=== PATIENT | male | born 1980 | race Caucasian/White ===

== ENCOUNTER 2017-08-14 12:55 | Observation (INO) | payer OTHER ==
[~2017-08-14] VITALS: Ht 177.8 cm; Wt 75.0 kg
[2017-08-14 13:45] VITALS: BP 141/78; PULSE 87; RESP 18; TEMP 97.6; O2SAT 97
--- NOTE | 2017-08-14 15:05 | RADRPT ---
EXAM DATE/TIME: 08/14/2017 14:12 [place] COMPARISON: No previous studies available for comparison. INDICATIONS : Chest tightness, short of breath. MEDICAL HISTORY : None. SURGICAL HISTORY : None. ENCOUNTER: Initial ACUITY: 1 day PAIN SCORE: 0/10 LOCATION: Bilateral chest FINDINGS: A single view of the chest demonstrates the lungs to be symmetrically aerated without evidence of mas s, infiltrate or effusion. The cardiomediastinal contours are unremarkable. Osseous structures are intact. CONCLUSION: 1. No acute cardiopulmonary disease. Brayden Ball MD on August 14, 2017 at 15:03 Board Certified Radiologist. This report was verified electronically.
[2017-08-14] MEDS ORDERED: ASPIRIN 325 MG TAB PO ONE (15:30)
--- NOTE | 2017-08-14 15:48 | PD ---
HPI Chief Complaint: Chest Pain Time Seen by Provider: 15:06 Travel History International Travel<30 days: No Contact w/Intl Traveler<30days: No Traveled to known affect area: No History of Present Illness HPI 36-year-old male that presents to the ED for evaluation of chest pain. Per patient he had this chest pain since Saturday. Per patient he was driving his car when he noticed having severe chest pain that was pressure-like. Per patient the pain now is improved on its own. Per patient the pain feels like a pressure. States having some shortness of breath with it. No history of this in the past. He denies any fevers chills or sweats. No recent travel. No blood thinner use. Patient was brought here by ambulance and was given Zofran but no nitroglycerin or aspirin. States that he was nauseous at the beginning but now he feels better. Per patient she still has the pressure and the discomfort is 2 out of 10. Has no allergies to medication. Denies any family history of heart disease on himself or anybody else. States having a history of cholesterol and does diet for it. He follows with the [facility] for his care. He denies any injury or trauma. No stressful situations that could've caused this. Initially the pain was severe 7 out of 10. Again the pain has improved on its own. Pain lasted less than an hour. [facility] Past Medical History Medical History: Denies Significant Hx ?: Not Past Surgical History Surgical History: No Previous Surgery Social History Alcohol Use: No Tobacco Use: No Substance Use: No Allergies-Medications (Allergen,Severity, Reaction): Coded Allergies: No Known Allergies (Verified Allergy, Unknown, 08/14/17) Review of Systems Except as stated in HPI: all other systems reviewed are Neg Physical Exam Narrative GENERAL: SKIN: Warm and dry. HEAD: Atraumatic. Normocephalic. EYES: Pupils equal and round. No scleral icterus. No injection or drainage. ENT: No nasal bleeding or discharge. Mucous membranes pink and moist. Tongue is midline. No uvula deviation. NECK: Trachea midline. No JVD. CARDIOVASCULAR: Regular rate and rhythm. No murmurs, S3, S4. Chest pain is not reproducible with touch. RESPIRATORY: No accessory muscle use. Clear to auscultation. Breath sounds equal bilaterally. GASTROINTESTINAL: Abdomen soft, non-tender, nondistended. Hepatic and splenic margins not palpable. MUSCULOSKELETAL: Extremities without clubbing, cyanosis, or edema. No obvious deformities. Full range of motion of the upper and lower extremities bilaterally. 2+ pulses bilaterally. NEUROLOGICAL: Awake and alert. No obvious cranial nerve deficits. Motor grossly within normal limits. Five out of 5 muscle strength in the arms and legs. Normal speech. PSYCHIATRIC: Appropriate mood and affect; insight and judgment normal. Data Data Last Documented VS Vital Signs Date Time Temp Pulse Resp B/P (MAP) Pulse Ox O2 Delivery O2 Flow Rate FiO2 08/14/17 14:35 97 Room Air 08/14/17 13:45 97.6 87 18 141/78 (99) Orders Orders Electrocardiogram (08/14/17 14:00) Complete Blood Count With Diff (08/14/17 14:00) Basic Metabolic Panel (Bmp) (08/14/17 14:00) Ckmb (Isoenzyme) Profile (08/14/17 14:00) Troponin I (08/14/17 14:00) Chest, Single Ap (08/14/17 14:00) Iv Access Insert/Monitor (08/14/17 14:00) Ecg Monitoring (08/14/17 14:00) Oxygen Administration (08/14/17 14:00) Oximetry (08/14/17 14:00) D-Dimer (08/14/17 14:04) Aspirin (Aspirin) (08/14/17 15:30) Labs Laboratory Tests Test 08/14/17 14:25 [facility] Medical Decision Making Medical Screen Exam Complete: Yes Emergency Medical Condition: Yes Medical Record Reviewed: Yes Differential Diagnosis Chest pain versus ACS versus PE versus pneumonia versus anxiety versus pancreatitis versus normal exam Narrative Course 36-year-old male that presents to the ED for evaluation of chest pain. Patient was properly examined and was found to have signs and symptoms consistent with chest pain. Unclear etiology at this time. Labs and imaging ordered. Initial EKG read by me and attending did not show any sign of ST elevation or acute ischemia. Patient was given aspirin. Case will be signed out to incoming provider pending disposition and treatment plan. Santo Cornell Aug 14, 2017 15:48
[2017-08-14 16:14] LABS: AUTOMATED NEUTROPHIL # 11.7 TH/MM3 (1.8-7.7); BASOPHIL # 0.1 TH/MM3 (0-0.2); BASOPHIL % 0.4 % (0.0-2.0); EOSINOPHIL # 0.1 TH/MM3 (0-0.4); HEMATOCRIT 41.2 % (39.0-51.0); HEMOGLOBIN 14.5 GM/DL (13.0-17.0); LYMPH % 7.9 % (9.0-44.0); LYMPHOCYTE # 1.1 TH/MM3 (1.0-4.8); MEAN CELL VOLUME 87.7 FL (80.0-100.0); MEAN CORPUSCULAR HEMOGLOBIN 30.9 PG (27.0-34.0); MEAN CORPUSCULAR HGB CONC 35.2 % (32.0-36.0); MEAN PLATELET VOLUME 10.3 FL (7.0-11.0); MONO % 5.6 % (0.0-8.0); MONOCYTE # 0.8 TH/MM3 (0-0.9); NEUT % 85.1 % (16.0-70.0); PLATELET COUNT 265 TH/MM3 (150-450); RED CELL DISTRIBUTION WIDTH 12.5 % (11.6-17.2); WHITE BLOOD COUNT 13.8 TH/MM3 (4.0-11.0)
[2017-08-14 16:33] LABS: BICARBONATE 28.7 MEQ/L (21.0-32.0); BLOOD UREA NITROGEN 15 MG/DL (7-18); CALCIUM 8.9 MG/DL (8.5-10.1); CHLORIDE 106 MEQ/L (98-107); CREATININE 0.98 MG/DL (0.60-1.30); GLOMERULAR FILTRATION RATE 87 ML/MIN (>89); GLUCOSE,RANDOM 86 MG/DL (74-106); SODIUM (NA) 141 MEQ/L (136-145)
[2017-08-14 16:35] LABS: TROPONIN I LESS THAN 0.02 NG/ML (0.02-0.05)
[2017-08-14] MEDS ORDERED: CETI-1 (16:46)
[2017-08-14] MEDS ORDERED: TAMS5CAP PO (16:46)
--- NOTE | 2017-08-14 16:53 | PD ---
Physical Exam Date Seen by Provider: Aug 14, 2017 Time Seen by Provider: 16:49 Narrative The patient is a 36-year-old male who was initially evaluated by the mid-level provider. Please refer to the initial history, physical, diagnostic evaluation , and treatment modality plan. Data Data Last Documented VS Vital Signs Date Time Temp Pulse Resp B/P (MAP) Pulse Ox O2 Delivery O2 Flow Rate FiO2 08/14/17 14:35 97 Room Air 08/14/17 13:45 97.6 87 18 141/78 (99) Orders Orders Electrocardiogram (08/14/17 14:00) Complete Blood Count With Diff (08/14/17 14:00) Basic Metabolic Panel (Bmp) (08/14/17 14:00) Ckmb (Isoenzyme) Profile (08/14/17 14:00) Troponin I (08/14/17 14:00) Chest, Single Ap (08/14/17 14:00) Iv Access Insert/Monitor (08/14/17 14:00) Ecg Monitoring (08/14/17 14:00) Oxygen Administration (08/14/17 14:00) Oximetry (08/14/17 14:00) D-Dimer (08/14/17 14:04) Aspirin (Aspirin) (08/14/17 15:30) Admit Order (Ed Use Only) (08/14/17 16:45) Labs Laboratory Tests Test 08/14/17 14:25 White Blood Count 13.8 TH/MM3 Red Blood Count 4.70 MIL/MM3 Hemoglobin 14.5 GM/DL Hematocrit 41.2 % Mean Corpuscular Volume 87.7 FL Mean Corpuscular Hemoglobin 30.9 PG Mean Corpuscular Hemoglobin Concent 35.2 % Red Cell Distribution Width 12.5 % Platelet Count 265 TH/MM3 Mean Platelet Volume 10.3 FL Neutrophils (%) (Auto) 85.1 % Lymphocytes (%) (Auto) 7.9 % Monocytes (%) (Auto) 5.6 % Eosinophils (%) (Auto) 1.0 % Basophils (%) (Auto) 0.4 % Neutrophils # (Auto) 11.7 TH/MM3 Lymphocytes # (Auto) 1.1 TH/MM3 Monocytes # (Auto) 0.8 TH/MM3 Eosinophils # (Auto) 0.1 TH/MM3 Basophils # (Auto) 0.1 TH/MM3 CBC Comment DIFF FINAL Differential Comment D-Dimer Quantitative (PE/DVT) LESS THAN 0.19 MG/L FEU Blood Urea Nitrogen 15 MG/DL Creatinine 0.98 MG/DL Random Glucose 86 MG/DL Calcium Level 8.9 MG/DL Sodium Level 141 MEQ/L Potassium Level 3.8 MEQ/L Chloride Level 106 MEQ/L Carbon Dioxide Level 28.7 MEQ/L Anion Gap 6 MEQ/L Estimat Glomerular Filtration Rate 87 ML/MIN Total Creatine Kinase 94 U/L Troponin I LESS THAN 0.02 NG/ML [facility] Medical Record Reviewed: Yes Supervised Visit with LUCRETIA: Yes Interpretation(s) EKG reveals normal sinus rhythm with a rate of 65. RSR prime in V1. No skin changes noted. Last Impressions Chest X-Ray 08/14/17 1400 Signed Impressions: Service Date/Time: Monday, August 14, 2017 14:12 - CONCLUSION: 1. No acute cardiopulmonary disease. Brayden Ball MD Laboratory Tests Test 08/14/17 14:25 White Blood Count 13.8 TH/MM3 Red Blood Count 4.70 MIL/MM3 Hemoglobin 14.5 GM/DL Hematocrit 41.2 % Mean Corpuscular Volume 87.7 FL Mean Corpuscular Hemoglobin 30.9 PG Mean Corpuscular Hemoglobin Concent 35.2 % Red Cell Distribution Width 12.5 % Platelet Count 265 TH/MM3 Mean Platelet Volume 10.3 FL Neutrophils (%) (Auto) 85.1 % Lymphocytes (%) (Auto) 7.9 % Monocytes (%) (Auto) 5.6 % Eosinophils (%) (Auto) 1.0 % Basophils (%) (Auto) 0.4 % Neutrophils # (Auto) 11.7 TH/MM3 Lymphocytes # (Auto) 1.1 TH/MM3 Monocytes # (Auto) 0.8 TH/MM3 Eosinophils # (Auto) 0.1 TH/MM3 Basophils # (Auto) 0.1 TH/MM3 CBC Comment DIFF FINAL Differential Comment D-Dimer Quantitative (PE/DVT) LESS THAN 0.19 MG/L FEU Blood Urea Nitrogen 15 MG/DL Creatinine 0.98 MG/DL Random Glucose 86 MG/DL Calcium Level 8.9 MG/DL Sodium Level 141 MEQ/L Potassium Level 3.8 MEQ/L Chloride Level 106 MEQ/L Carbon Dioxide Level 28.7 MEQ/L Anion Gap 6 MEQ/L Estimat Glomerular Filtration Rate 87 ML/MIN Total Creatine Kinase 94 U/L Troponin I LESS THAN 0.02 NG/ML Differential Diagnosis Differential diagnosis includes acute coronary syndrome, GERD, esophageal spasm , arrhythmia, pericardial effusion, PTSD, anxiety. Narrative Course I, Dr. Pascal, have reviewed the advance practice practitioner's documentation and am in agreement, met with the patient face to face, made the diagnosis, and the medical decision making was done by me. *My assessment and Findings: The patient is a 36-year-old male was initially evaluated by the mid-level provider. Please refer to the initial history, physical, diagnostic evaluation, and treatment modality plan. The patient was driving his car earlier today when he developed substernal chest pressure. The patient felt like his heart was beating fast, he had chest pressure, and shortness of breath. The patient checked his pulse but it was between 80 and 90. He became diaphoretic, lightheaded, nauseous, but did not vomit. The symptoms lasted approximately one hour then resolved. He did receive aspirin by EMS prior to arrival. He does have a history of hyperlipidemia, but currently takes no medications. He denies any known history of hypertension, tobacco use, diabetes, or coronary artery disease. He denies any known family history of early heart disease. The patient thinks he may have had a stress test that [place] heart rate 2 years ago which was negative. He denies any current exertional symptoms. He denies any history of pulmonary embolus or DVT. The patient's d-dimer was less than 0.19, essentially ruling out pulmonary embolism. He's had no obvious dysrhythmias or tachycardias in the emergency department, initial troponin is negative, I do discussion with the patient regarding serial enzymes and discharge home versus serial enzymes and chest pain Center. After discussion with the patient was agreed the patient would be 23 hour observation to chest pain center for serial cardiac enzymes and evaluation by cardiology for possible stress test. Physician Communication Physician Communication The patient will be a 23 hour observation to the chest pain center for serial cardiac enzymes and further evaluation by cardiology for possible stress test. Diagnosis Primary Impression: Chest pain Qualified Codes: R07.9 - Chest pain, unspecified Admitting Information Admitting Physician Requests: Observation Condition: Stable Bin Pasacl MD Aug 14, 2017 16:53
--- NOTE | 2017-08-14 17:53 | HHI.HP ---
HPI Primary Care Physician [facility] Chief Complaint Chest pressure History of Present Illness 36-year-old male with no specific past medical history presents to emergency room for further evaluation of chest pressure. Onset this afternoon while driving when he became short of breath, felt palpitations, and his chest became tight. Endorses past anxiety attacks usually able to calm down with deep breathing. Tried to deep breath and relax, however symptoms persisted become worse, therefore called 911. No radiation. Associated symptoms of dyspnea. No nausea, vomiting, or diaphoresis. No known precipitating or relieving factors. He noted his pulse in EVAC to be 80. Review of Systems General: No fatigue,weakness, fever, chills, recent illness, or change in appetite. HEENT: No BRODY, no vision changes, no nasal congestion or drainage, no dysphasia CV: As stated above. No current chest pain,pressure, or palpitations. RESP: No SOB, cough, wheeze, or recent URI. GI: No nausea, vomiting, bowel changes. : No dysuria, urgency, frequency EXT: No lower leg edema, no paraesthesias MS: No discomfort or change in ROM NEURO: No change in memory, dizziness, difficulty with balance, LOC, motor/ sensory deficits PSYCH: History of anxiety. SKIN: No rashes, no concerning lesions Past Family Social History Allergies: Coded Allergies: No Known Allergies (Verified Allergy, Unknown, 08/14/17) Past Medical History Anxiety Past Surgical History None Reported Medications Reported Meds & Active Scripts Active Reported Flomax (Tamsulosin HCl) 0.4 Mg Cap 0.4 Mg PO HS Zyrtec (Cetirizine HCl) 10 Mg Tablet Family History Noncontributory for early onset cardiovascular disease. Social History No known hypertension, hyperlipidemia, or diabetes. Lifelong nonsmoker. Denies neck or illegal drug use. Endorses an active lifestyle, works as a information assoc. Past cardiac testing None Physical Exam Vital Signs Vital Signs Date Time Temp Pulse Resp B/P (MAP) Pulse Ox O2 Delivery O2 Flow Rate FiO2 08/14/17 14:35 97 Room Air 08/14/17 13:45 97.6 87 18 141/78 (99) 97 Physical Exam GENERAL: Alert WN, WD, NAD, pleasant, male HEAD: NC, AT NECK: Supple, no masses, trachea midline CV: RRR, without murmur, rub, gallop, no JVD, S1-S2 no S3-S4. RESP: Clear lungs throughout bilateral, no crackles, wheeze, rhonchi, symmetrical chest rise, nonlabored, able to speak in full sentences ABD: Soft, NT, ND, no masses, positive bowel tones EXT: Pulses +24, no dependent edema MS: Normal tone 4 extremities, no obvious deformities, full range of motion NEURO: CN II through CN XII grossly intact, motor strength 5/5 PSYCH: A+O 3, pleasant affect, appropriate speech, mood, insight and judgment SKIN: Normal turgor, normal texture, no lesions, no rashes Laboratory Laboratory Tests Test 08/14/17 14:25 White Blood Count 13.8 Red Blood Count 4.70 Hemoglobin 14.5 Hematocrit 41.2 Mean Corpuscular Volume 87.7 Mean Corpuscular Hemoglobin 30.9 Mean Corpuscular Hemoglobin Concent 35.2 Red Cell Distribution Width 12.5 Platelet Count 265 Mean Platelet Volume 10.3 Neutrophils (%) (Auto) 85.1 Lymphocytes (%) (Auto) 7.9 Monocytes (%) (Auto) 5.6 Eosinophils (%) (Auto) 1.0 Basophils (%) (Auto) 0.4 Neutrophils # (Auto) 11.7 Lymphocytes # (Auto) 1.1 Monocytes # (Auto) 0.8 Eosinophils # (Auto) 0.1 Basophils # (Auto) 0.1 CBC Comment DIFF FINAL Differential Comment D-Dimer Quantitative (PE/DVT) LESS THAN 0.19 Blood Urea Nitrogen 15 Creatinine 0.98 Random Glucose 86 Calcium Level 8.9 Sodium Level 141 Potassium Level 3.8 Chloride Level 106 Carbon Dioxide Level 28.7 Anion Gap 6 Estimat Glomerular Filtration Rate 87 Total Creatine Kinase 94 Troponin I LESS THAN 0.02 Result Diagram: 08/14/17 1425 08/14/17 1425 Imaging Last 48 hours Impressions Chest X-Ray 08/14/17 1400 Signed Impressions: Service Date/Time: Monday, August 14, 2017 14:12 - CONCLUSION: 1. No acute cardiopulmonary disease. Brayden Ball MD Course EKG Normal sinus rhythm, normal axis, no ST or T-segment changes Caprini VTE Risk Assessment Caprini VTE Risk Assessment: No/Low Risk (score <= 1) Caprini Risk Assessment Model Point Value = 1 Point Value = 2 Point Value = 3 Point Value = 5 Age 41-60 Minor surgery BMI > 25 kg/m2 Swollen legs Varicose veins or History of unexplained or recurrent spontaneous Oral contraceptives or hormone replacement Sepsis (< 1 month) Serious lung disease, including pneumonia (< 1 month) Abnormal pulmonary function Acute myocardial infarction Congestive heart failure (< 1 month) History of inflammatory bowel disease Medical patient at bed rest Age 61-74 Arthroscopic surgery Major open surgery (> 45 min) Laparoscopic surgery (> 45 min) Malignancy Confined to bed (> 72 hours) Immobilizing plaster cast Central venous access Age >= 75 History of VTE Family history of VTE Factor V Leiden Prothrombin [id number] Lupus anticoagulant Anticardiolipin antibodies Elevated serum homocysteine Heparin-induced thrombocytopenia Other congenital or acquired thrombophilia Stroke (< 1 month) Elective arthroplasty Hip, pelvis, or leg fracture Acute spinal cord injury (< 1 month) Prophylaxis Regimen Total Risk Factor Score Risk Level Prophylaxis Regimen 0-1 Low Early ambulation 2 Moderate Order ONE of the following: *Sequential Compression Device (SCD) *Heparin 5000 units SQ BID 3-4 Higher Order ONE of the following medications: *Heparin 5000 units SQ TID *Enoxaparin/Lovenox 40 mg SQ daily (WT < 150 kg, CrCl > 30 mL/min) *Enoxaparin/Lovenox 30 mg SQ daily (WT < 150 kg, CrCl > 10-29 mL/min) *Enoxaparin/Lovenox 30 mg SQ BID (WT < 150 kg, CrCl > 30 mL/min) AND/OR *Sequential Compression Device (SCD) 5 or more Highest Order ONE of the following medications: *Heparin 5000 units SQ TID (Preferred with Epidurals) *Enoxaparin/Lovenox 40 mg SQ daily (WT < 150 kg, CrCl > 30 mL/min) *Enoxaparin/Lovenox 30 mg SQ daily (WT < 150 kg, CrCl > 10-29 mL/min) *Enoxaparin/Lovenox 30 mg SQ BID (WT < 150 kg, CrCl > 30 mL/min) AND *Sequential Compression Device (SCD) Assessment and Plan Assessment and Plan #1 Atypical chest pain-admitted to chest pain center. Rule out with 3 sets of EKGs, cardiac enzymes, and monitored overnight. After being ruled out plans to proceed with exercise stress test in the morning. If stress testing unremarkable, plans to discharge home with follow-up with PCP. Patient agreeable to plan of care. No evidence of arrhythmias noted on EVAC documentation. Hanna Scott Aug 14, 2017 17:53
[2017-08-14] MEDS ORDERED: ACETAMINOPHEN 500 MG CPLT PO PRN (18:00)
[2017-08-14] MEDS ORDERED: SODIUM CHLORIDE 0.9% FLUSH 10 ML FLUSH IV FLUSH PRN (18:00)
[2017-08-14] MEDS ORDERED: NITROGLYCERIN 0.4 MG SL 25 TABS/BTL SL PRN (18:00)
[2017-08-14] MEDS ORDERED: ONDANSETRON HCL 4 MG/2 ML VIAL IV PUSH PRN (18:00)
[2017-08-14 19:17] VITALS: BP 108/59; PULSE 53; RESP 18; O2SAT 98
[2017-08-14] MEDS: SODIUM CHLORIDE 0.9% FLUSH 10 ML FLUSH IV FLUSH SCH (20:29)
[2017-08-14 20:57] LABS: TROPONIN I LESS THAN 0.02 NG/ML (0.02-0.05)
[2017-08-14 21:21] VITALS: BP 102/61; PULSE 55; RESP 16; TEMP 98; O2SAT 97
[2017-08-14 21:39] VITALS: PULSE 52
[2017-08-14 22:20] LABS: TROPONIN I LESS THAN 0.02 NG/ML (0.02-0.05)
[2017-08-15 00:22] VITALS: BP 118/59; PULSE 58; RESP 16; TEMP 98; O2SAT 98
[2017-08-15 03:36] VITALS: PULSE 53
[2017-08-15 04:44] VITALS: BP 98/56; PULSE 50; RESP 16; TEMP 98.1; O2SAT 96
[2017-08-15 07:34] VITALS: BP 114/60; PULSE 57; RESP 18; TEMP 98.1; O2SAT 98
[2017-08-15 08:00] VITALS: PULSE 66
[2017-08-15] MEDS: SODIUM CHLORIDE 0.9% FLUSH 10 ML FLUSH IV FLUSH SCH (08:22)
[2017-08-15] MEDS ORDERED: ASPIRIN 325 MG TAB PO SCH (09:00)
--- NOTE | 2017-08-15 09:34 | HHI.DCPOC ---
Discharge Care Plan Diagnosis: (1) Chest pain Goals to Promote Your Health * To prevent worsening of your condition and complications * To maintain your health at the optimal level Directions to Meet Your Goals Take your medications as prescribed Follow your dietary instruction Follow activity as directed Keep your appointments as scheduled Take your immunizations and boosters as scheduled If your symptoms worsen call your PCP, if no PCP go to Urgent Care Center or Emergency Room Smoking is Dangerous to Your Health. Avoid second hand smoke Call the 24-hour hour crisis hotline for domestic abuse at Benjamín Hilliard Aug 15, 2017 09:34
--- NOTE | 2017-08-16 15:54 | EKG ---
Date Performed: 08/14/2017 Time Performed: 21:27:04 PTAGE: 36 years EKG: SINUS BRADYCARDIA BORDERLINE ECG PREVIOUS TRACING : 08/14/2017 19.33 Since previous tracing, no significant change noted DOCTOR: Jorge A De La Torre Interpretating Date/Time 08/16/2017 15:52:48
--- NOTE | 2017-08-16 15:55 | EKG ---
Date Performed: 08/14/2017 Time Performed: 19:33:19 PTAGE: 36 years EKG: SINUS BRADYCARDIA BORDERLINE ECG PREVIOUS TRACING : 08/14/2017 19.32 Since previous tracing, no significant change noted DOCTOR: Jorge A De La Torre Interpretating Date/Time 08/16/2017 15:53:30
--- NOTE | 2017-08-16 15:56 | EKG ---
Date Performed: 08/14/2017 Time Performed: 15:06:41 PTAGE: 36 years EKG: Sinus rhythm POSSIBLE RIGHT VENTRICULAR CONDUCTION DELAY BORDERLINE ECG NO PREVIOUS TRACING DOCTOR: Jorge A De La Torre Interpretating Date/Time 08/16/2017 15:56:15
--- NOTE | 2017-08-16 16:12 | TR ---
Date Performed: 08/15/2017 Time Performed: 09:01:49 DOCTOR: Jorge A De La Torre DRUG LIST: CLINICAL HISTORY: REASON FOR TEST: REASON FOR ENDING: OBSERVATION: CONCLUSION: JOHN PROTOCOL. NO CP OR SOB. TEST STOPPED AFTER EXCEEDING GOAL HR SECONDARY TO LEG FATIGUE.Maximum XL=439 % Max HR Achieved=97.0% Maximum OT=097/78 Total Exercise Time=11:59 COMMENTS: Patient exercised using the John protocol. No electrocardiographic changes were seen to suggest ischemia. Hemodynamic response to exercise was normal. No significant arrhythmia was prese nt.
== END 2017-08-15 10:07 | disposition home or self-care (01) ==
LOC: NEDAMB 12:55 → NEDA 16:46 → NEPFCDU 19:56
PROVIDERS: ADMIT Internal Medicine Cardiovascular Disease; ATTEND Internal Medicine Cardiovascular Disease
DX: R07.89 Other chest pain (principal); R06.02 Shortness of breath; R11.0 Nausea; R42 Dizziness and giddiness; R61 Generalized hyperhidrosis; E78.5 Hyperlipidemia, unspecified; R00.1 Bradycardia, unspecified; F41.9 Anxiety disorder, unspecified
CPT/HCPCS: 71045; 80048; 82550; 84484; 85025; 85379; 93005; 93017; 99285; G0378